=== PATIENT | female | born 1975 | race Caucasian/White ===

== ENCOUNTER 2019-05-31 08:18 | Emergency (ER) | payer MEDICAID ==
[~2019-05-31] VITALS: Ht 152.4 cm; Wt 71.0 kg
[~2019-05-31 08:18] MED LIST: ACET500C5 PO; BUTA1CAP39 PO; CEPH-443 PO; CLIN300C10 PO; IBUP-1544 PO; IBUP-1561 PO; PRED20TA PO
[2019-05-31 08:22] VITALS: BP 134/71; PULSE 100; RESP 18; Ht 152.4 cm; Wt 71.0 kg
== END 2019-05-31 09:11 | disposition home or self-care (01) ==
LOC: FTE 08:18
DX: Z48.01 Encounter for change or removal of surgical wound dressing (principal); I10 Essential (primary) hypertension
CPT/HCPCS: 99281